=== PATIENT | female | born 1995 | race Caucasian/White ===

== ENCOUNTER 2017-07-31 12:21 | Emergency (ER) | payer BC, OTHER ==
[~2017-07-31] VITALS: Ht 172.7 cm; Wt 48.0 kg
[~2017-07-31 12:21] MED LIST: IBUP600 PO; PERI8.6T PO; PREN0.01 PO
[2017-07-31] MEDS ORDERED: IOHEXOL 350 MG/ML 10 ML VIAL (for RAD DIAG) IVCONTRAST ONE (12:22)
[2017-07-31 12:32] VITALS: BP 133/71; PULSE 109; RESP 18; TEMP 98.3; O2SAT 99
[2017-07-31] MEDS ORDERED: SODIUM CHLOR 0.9% 1000 ML INJ 1,000 ML IV SCH (14:09)
[2017-07-31] MEDS ORDERED: MORPHINE SULFATE 4 MG/ML INJ IV PUSH ONE (14:15)
[2017-07-31] MEDS ORDERED: SODIUM CHLORIDE 0.9% FLUSH 10 ML FLUSH IV FLUSH PRN (14:15)
[2017-07-31] MEDS ORDERED: ONDANSETRON HCL 4 MG/2 ML VIAL IVP ONE (14:15)
[2017-07-31 15:22] LABS: AUTOMATED NEUTROPHIL # 9.7 TH/MM3 (1.8-7.7); BASOPHIL % 0.3 % (0.0-2.0); EOSINOPHIL # 0.3 TH/MM3 (0-0.4); EOSINOPHIL % 2.6 % (0.0-4.0); HEMATOCRIT 40.9 % (35.0-46.0); HEMOGLOBIN 13.5 GM/DL (11.6-15.3); LYMPH % 10.6 % (9.0-44.0); LYMPHOCYTE # 1.4 TH/MM3 (1.0-4.8); MEAN CELL VOLUME 80.6 FL (80.0-100.0); MEAN CORPUSCULAR HEMOGLOBIN 26.6 PG (27.0-34.0); MEAN PLATELET VOLUME 7.4 FL (7.0-11.0); MONO % 9.9 % (0.0-8.0); MONOCYTE # 1.3 TH/MM3 (0-0.9); NEUT % 76.6 % (16.0-70.0); PLATELET COUNT 544 TH/MM3 (150-450); RED BLOOD COUNT 5.07 MIL/MM3 (4.00-5.30); RED CELL DISTRIBUTION WIDTH 15.3 % (11.6-17.2); WHITE BLOOD COUNT 12.7 TH/MM3 (4.0-11.0)
[2017-07-31 15:40] LABS: ALBUMIN 3.4 GM/DL (3.4-5.0); AST (GOT) 12 U/L (16-38); BICARBONATE 29.1 MEQ/L (21.0-32.0); BLOOD UREA NITROGEN 5 MG/DL (7-18); CALCIUM 9.1 MG/DL (8.5-10.1); CHLORIDE 102 MEQ/L (98-107); CREATININE 0.68 MG/DL (0.50-1.00); GLOMERULAR FILTRATION RATE 110 ML/MIN (>89); GLUCOSE,RANDOM 78 MG/DL (74-106); SODIUM (NA) 139 MEQ/L (136-145)
[2017-07-31 15:41] LABS: INTERNATIONAL NORMALIZED RATIO 1.1 RATIO; PROTHROMBIN TIME - PATIENT 10.8 SEC (9.8-11.6)
[2017-07-31 15:42] LABS: ALKALINE PHOSPHATASE 128 U/L (45-117); ALT (GPT) 12 U/L (9-42); TOTAL BILIRUBIN ADULT 0.2 MG/DL (0.2-1.0); TOTAL PROTEIN 8.7 GM/DL (6.4-8.2)
[2017-07-31 16:04] LABS: BILIRUBIN, URINE NEG (NEG); BLOOD, URINE NEG (NEG); GLUCOSE,URINE NEG (NEG); KETONE, URINE 40 mg/dL (NEG); MUCUS URINE FEW /lpf (OCC); NITRITE,URINE NEG (NEG); SQUAMOUS EPITHELIAL CELL URINE 18 /hpf (0-5); URINE COLOR YELLOW (YELLW/STRAW); URINE LEUKOCYTE ESTERASE LARGE (NEG)
--- NOTE | 2017-07-31 16:08 | RADRPT ---
EXAM DATE/TIME: 07/31/2017 15:45 [place] COMPARISON: No previous studies available for comparison. INDICATIONS : Abdominal pain, diarrhea. IV CONTRAST: 95 cc Omnipaque 350 (iohexol) IV ORAL CONTRAST: No oral contrast ingested. RADIATION DOSE: 4.53 CTDIvol (mGy) MEDICAL HISTORY : Crohns disease. SURGICAL HISTORY : None. ENCOUNTER: Initial ACUITY: 1 month PAIN SCALE: 6/10 LOCATION: Bilateral Abdomen TECHNIQUE: Volumetric scanning of the abdomen and pelvis was performed. Using automated exposure control and ad justment of the mA and/or kV according to patient size, radiation dose was kept as low as reasonably achievable to obtain optimal diagnostic quality images. DICOM format image data is available electro nically for review and comparison. FINDINGS: LOWER LUNGS: The visualized lower lungs are clear. LIVER: Focal fatty infiltration in the region of the falciform ligament is noted. Homogeneous density withou t lesion. There is no dilation of the biliary tree. No calcified gallstones. SPLEEN: Normal size without lesion. PANCREAS: Within normal limits. KIDNEYS: Normal in size and shape. There is no mass, stone or hydronephrosis. ADRENAL GLANDS: Within normal limits. VASCULAR: There is no aortic aneurysm. BOWEL/MESENTERY: There is diffuse thickening involving the wall of the distal and terminal ileum with the involved seg ment measuring at least 20 cm in length. The findings suggest acute ileitis. Differential includes Cr ohn's disease or possible infectious ileitis. Clinical correlation is recommended. ABDOMINAL WALL: Within normal limits. RETROPERITONEUM: There is no lymphadenopathy. BLADDER: No wall thickening or mass. REPRODUCTIVE: Within normal limits. INGUINAL: There is no lymphadenopathy or hernia. MUSCULOSKELETAL: Within normal limits for patient age. CONCLUSION: Diffuse thickening involving the wall of the distal and terminal ileum with the invol adnra segment measuring at least 20 cm in length. The findings suggest acute ileitis. Differential incl udes Crohn's disease or possible infectious ileitis. Clinical correlation is recommended. Adolfo Interiano MD on July 31, 2017 at 15:56 Board Certified Radiologist. This report was verified electronically.
[2017-07-31] MEDS ORDERED: CIPR-9 PO (16:41)
[2017-07-31] MEDS ORDERED: METR-1 PO (16:41)
--- NOTE | 2017-07-31 16:41 | PD ---
HPI Chief Complaint: Abdominal Pain Time Seen by Provider: 13:59 Travel History International Travel<30 days: No Contact w/Intl Traveler<30days: No Traveled to known affect area: No History of Present Illness HPI Patient is a 22 year old female with history of Crohn's disease, who comes in complaining of abdominal pain and diarrhea. She says it has been going on for the past month, but has become worse these past few days. She has tried Ibuprofen without relief of her symptoms. She denies blood in her stool. She says she has been off medications for a while because she has not seen her doctor in a while. She says she has an appointment next month, but was unable to wait until then. Severity is moderate. PFSH Past Medical History Weight (Kg): 3 Cancer: No Cardiovascular Problems: No Diabetes: No Gastrointestinal Disorders: Yes (CHRON'S) Headaches: No Psychiatric: Yes (DEPRESSION) Reproductive: Yes (PCOS) Immunizations Current: Yes Seizures: No Influenza Vaccination: No ?: Not LMP: 07/19/17 : 2 Para: 2 Past Surgical History Surgical History: No Previous Surgery Section: No Social History Alcohol Use: No Tobacco Use: No Substance Use: No Allergies-Medications (Allergen,Severity, Reaction): Coded Allergies: No Known Allergies (Verified , 11/05/05) Reported Meds & Prescriptions Reported Meds & Active Scripts Active Nuris-Colace 8.6-50 mg (Sennosides-Docusate Sodium) 1 Tab Tab 2 Tab PO Q12H PRN Motrin 600 Mg Tab (Ibuprofen) 600 Mg Tab 600 Mg PO Q6H PRN Reported Vit ( Plus) (Prenat Multivit/Choudrant/Iron/Folic Ac) Tab 1 Tab PO DAILY Review of Systems Except as stated in HPI: all other systems reviewed are Neg General / Constitutional: No: Fever, Chills HENT: No: Headaches, Lightheadedness Cardiovascular: No: Chest Pain or Discomfort Respiratory: No: Shortness of Breath Gastrointestinal: Positive: Diarrhea, Abdominal Pain Genitourinary: No: Dysuria Musculoskeletal: No: Myalgias Skin: No Rash, No Change in Pigmentation Neurologic: No: Weakness, Dizziness Physical Exam Narrative GENERAL: Awake and alert, in no acute distress. SKIN: Focused skin assessment warm/dry. No wounds or signs of infection. HEAD: Atraumatic. Normocephalic. EYES: Pupils equal and round. No scleral icterus. No injection or drainage. ENT: No nasal bleeding or discharge. Mucous membranes pink and moist. NECK: Trachea midline. No JVD. CARDIOVASCULAR: Regular rate and rhythm. No murmur appreciated. RESPIRATORY: No accessory muscle use. Clear to auscultation. Breath sounds equal bilaterally. GASTROINTESTINAL: Abdomen soft, nondistended. Mild diffuse tenderness, no rebound or guarding. MUSCULOSKELETAL: No obvious deformities. No clubbing. No cyanosis. No edema. NEUROLOGICAL: Awake and alert. No obvious cranial nerve deficits. Motor grossly within normal limits. Normal speech. PSYCHIATRIC: Appropriate mood and affect; insight and judgment normal. Data Data Last Documented VS Vital Signs Date Time Temp Pulse Resp B/P (MAP) Pulse Ox O2 Delivery O2 Flow Rate FiO2 07/31/17 12:32 98.3 109 18 133/71 (91) 99 Orders Orders Complete Blood Count With Diff (07/31/17 14:09) Comprehensive Metabolic Panel (07/31/17 14:09) Lactic Acid (07/31/17 14:09) Prothrombin Time / Inr (Pt) (07/31/17 14:09) Act Partial Throm Time (Ptt) (07/31/17 14:09) Urinalysis - C+S If Indicated (07/31/17 14:09) Ct Abd/Pel W Iv Contrast(Rout) (07/31/17 14:09) Iv Access Insert/Monitor (07/31/17 14:09) Ecg Monitoring (07/31/17 14:09) Oximetry (07/31/17 14:09) Morphine Inj (Morphine Inj) (07/31/17 14:15) Ondansetron Inj (Zofran Inj) (07/31/17 14:15) Sodium Chlor 0.9% 1000 Ml Inj (Ns 1000 M (07/31/17 14:09) Sodium Chloride 0.9% Flush (Ns Flush) (07/31/17 14:15) Ed Urine Pregnancytest Poc (07/31/17 14:09) Iohexol 350 Inj (Omnipaque 350 Inj) (07/31/17 12:22) Labs Laboratory Tests Test 07/31/17 15:00 07/31/17 15:05 White Blood Count 12.7 TH/MM3 Red Blood Count 5.07 MIL/MM3 Hemoglobin 13.5 GM/DL Hematocrit 40.9 % Mean Corpuscular Volume 80.6 FL Mean Corpuscular Hemoglobin 26.6 PG Mean Corpuscular Hemoglobin Concent 33.0 % Red Cell Distribution Width 15.3 % Platelet Count 544 TH/MM3 Mean Platelet Volume 7.4 FL Neutrophils (%) (Auto) 76.6 % Lymphocytes (%) (Auto) 10.6 % Monocytes (%) (Auto) 9.9 % Eosinophils (%) (Auto) 2.6 % Basophils (%) (Auto) 0.3 % Neutrophils # (Auto) 9.7 TH/MM3 Lymphocytes # (Auto) 1.4 TH/MM3 Monocytes # (Auto) 1.3 TH/MM3 Eosinophils # (Auto) 0.3 TH/MM3 Basophils # (Auto) 0.0 TH/MM3 CBC Comment DIFF FINAL Differential Comment Prothrombin Time 10.8 SEC Prothromb Time International Ratio 1.1 RATIO Activated Partial Thromboplast Time 29.4 SEC Blood Urea Nitrogen 5 MG/DL Creatinine 0.68 MG/DL Random Glucose 78 MG/DL Total Protein 8.7 GM/DL Albumin 3.4 GM/DL Calcium Level 9.1 MG/DL Alkaline Phosphatase 128 U/L Aspartate Amino Transf (AST/SGOT) 12 U/L Alanine Aminotransferase (ALT/SGPT) 12 U/L Total Bilirubin 0.2 MG/DL Sodium Level 139 MEQ/L Potassium Level 4.0 MEQ/L Chloride Level 102 MEQ/L Carbon Dioxide Level 29.1 MEQ/L Anion Gap 8 MEQ/L Estimat Glomerular Filtration Rate 110 ML/MIN Lactic Acid Level 0.8 mmol/L Urine Color YELLOW Urine Turbidity HAZY Urine pH 7.0 Urine Specific [place]er 1.014 Urine Protein TRACE mg/dL Urine Glucose (UA) NEG mg/dL Urine Ketones 40 mg/dL Urine Occult Blood NEG Urine Nitrite NEG Urine Bilirubin NEG Urine Urobilinogen LESS THAN 2.0 MG/DL Urine Leukocyte Esterase LARGE Urine WBC 3 /hpf Urine Squamous Epithelial Cells 18 /hpf Urine Mucus FEW /lpf Microscopic Urinalysis Comment CULT NOT INDICATED MDM Medical Decision Making Medical Screen Exam Complete: Yes Emergency Medical Condition: Yes Medical Record Reviewed: Yes Differential Diagnosis Crohn's flare vs colitis vs diverticulitis vs UTI Narrative Course Patient is a 22 year old female who comes in complaining of abdominal pain. Exam shows mild diffuse tenderness. IV established, labs sent. Labs show mild elevation in WBC count to 12.7. CT abd/pelvis performed. Last 24 hours Impressions Abdomen/Pelvis CT 07/31/17 1409 Signed Impressions: Service Date/Time: Monday, July 31, 2017 15:45 - CONCLUSION: Diffuse thickening involving the wall of the distal and terminal ileum with the involved segment measuring at least 20 cm in length. The findings suggest acute ileitis. Differential includes Crohn's disease or possible infectious ileitis. Clinical correlation is recommended. Adolfo Interiano MD Patient given IVF and pain medicine. Will be discharged with prescriptions for Cipro, Flagyl and [place]are. Advised to follow up with her doctor. Advised to return to the ED as needed for any worsening symptoms. Diagnosis Primary Impression: Abdominal pain Qualified Codes: R10.84 - Generalized abdominal pain Additional Impression: Ileitis Patient Instructions: Abdominal Pain (ED), Acute Diarrhea (ED), General Instructions Additional Instructions: Drinking plenty of fluids. Take all of your antibiotics. Follow up with your doctors. Return to the ED as needed for any worsening symptoms. Scripts Metronidazole (Flagyl) 500 Mg Tab 500 MG PO TID for Infection for 7 Days, TAB 0 Refills Prov: Brionna Ruiz MD 07/31/17 Ciprofloxacin (Cipro) 500 Mg Tab 500 MG PO BID for Infection for 7 Days, #14 TAB 0 Refills Prov: Brionna Ruiz MD 07/31/17 Disposition: 01 DISCHARGE HOME Condition: Stable Brionna Ruiz MD Jul 31, 2017 16:41
[2017-07-31 16:46] VITALS: BP 110/68
== END 2017-07-31 17:00 | disposition home or self-care (01) ==
LOC: NEPE 12:21
DX: K52.9 Noninfective gastroenteritis and colitis, unspecified (principal); R10.84 Generalized abdominal pain
CPT/HCPCS: 74177; 80053; 81001; 83605; 84703; 85025; 85610; 85730; 96374; 96375; 99284; J2270; J2405; J7030; Q9967